=== PATIENT | male | born 1975 | race Caucasian/White ===

== ENCOUNTER 2017-12-18 09:51 | Emergency (ER) | payer MEDICARE, MEDICAID ==
[2017-12-18 11:58] VITALS: BP 147/89
--- NOTE | 2017-12-18 12:56 | RAD ---
INDICATION: Left rib pain COMPARISON: None TECHNIQUE: Multiple views of the ribs were obtained. FINDINGS: Bones: There is no evidence of acute rib fracture. LUNGS: There is mild linear change right lung base most consistent with atelectasis. The remaining lung edgar are clear. There is no pneumothorax. Pleural spaces: There is no evidence of hemothorax. Other: None IMPRESSION: NO ACUTE RIB FRACTURE. MILD LEFT BASILAR ATELECTASIS.
--- NOTE | 2017-12-18 13:01 | UC ---
Cardiac HPI - HPI Summary HPI Summary: Pt c/o sudden onset of left chest/rib pain s/p leaning over a a seat in a car and pulling on a heavy object in car and felt a sudden pop in left upper medial anterior chest. Pt c/o pain with movement, deep breaths and coughing. Denies hemoptysis fever or chills - History of Current Complaint Chief Complaint: UCTrauma Stated Complaint: RIB INJURY Time Seen by Provider: 12/18/17 12:13 Hx Obtained From: Patient Onset/Duration: Sudden Onset Timing: Constant Initial Severity: Mild Current Severity: Mild Chest Pain Location: Left Anterior Aggravating Factor(s): Movement, Deep Breaths Alleviating Factor(s): Position Associated Signs & Symptoms: Positive: Chest Pain - Allergy/Home Medications Allergies/Adverse Reactions: Allergies Allergy/AdvReac Type Severity Reaction Status Date / Time Meloxicam [From [employer]] Allergy Intermediate feet Verified 12/18/17 11:58 swelling Nortriptyline Allergy Swelling Verified 12/18/17 11:58 avoids NSAIDS AdvReac Nausea Uncoded 12/18/17 11:58 Home Medications: Home Medications Escitalopram Oxalate [Lexapro 10 mg] 10 mg 12/18/17 [History] PMH/Surg Hx/FS Hx/Imm Hx Previously Healthy: Yes - Surgical History Surgical History: Yes Surgery Procedure, Year, and Place: rt clavicle repair, right shoulder surgery, right knee surgery, stimulator in right shoulder for pain control - Family History Known Family History: Positive: Cardiac Disease - Social History Occupation: Employed Full-time Lives: With Family Alcohol Use: None Substance Use Type: Marijuana Substance Use Comment - Amount & Last Used: 1100 today. Once daily Smoking Status (MU): Heavy Every Day Tobacco Smoker Type: Cigarettes Amount Used/How Often: 1 PPD Length of Time of Smoking/Using Tobacco: 26 Years Have You Smoked in the Last Year: Yes Household Exposure Type: Cigarettes - Immunization History Most Recent Influenza Vaccination: not current Review of Systems Constitutional: Negative Skin: Negative Eyes: Negative ENT: Negative Respiratory: Negative Cardiovascular: Chest Pain Gastrointestinal: Negative Genitourinary: Negative Motor: Negative Musculoskeletal: Myalgia Neurological: Negative Psychological: Negative Is Patient Immunocompromised?: No All Other Systems Reviewed And Are Negative: Yes Physical Exam Triage Information Reviewed: Yes Appearance: Well-Appearing Vital Signs: Initial Vital Signs Temp 99.3 F 12/18/17 11:53 Pulse 87 12/18/17 11:53 Resp 18 12/18/17 11:53 BP 147/89 12/18/17 11:53 Pulse Ox 99 12/18/17 11:53 Vital Signs Reviewed: Yes Eye Exam: Normal ENT Exam: Normal Neck exam: Normal Respiratory Exam: Normal Cardiovascular Exam: Normal Musculoskeletal Exam: Other Musculoskeletal: Positive: ROM Limited @ - c/o pain with left pectoralis muscle movement, Other: - tenderness with palaption to left upper anterior medial chest wall, Neurological Exam: Normal Psychological Exam: Normal Skin Exam: Normal - Differential Diagnoses - Chest Pain Differential Diagnosis/HQI/PQRI: ACS - Clinical Impression Provider Diagnoses: muscle strain. chest wall pain Discharge - Discharge Plan Condition: Stable Disposition: HOME Prescriptions: predniSONE TAB* [Deltasone TAB*] 20 mg PO DAILY #4 tab Patient Education Materials: Muscle Strain (ED), Chest Wall Pain (ED) Referrals: Jazmín Avalos PA [Primary Care Provider] - If Needed
== END 2017-12-18 13:12 | disposition home or self-care (01) ==
LOC: UCCORT 09:51
DX: R07.89 Other chest pain (principal); T14.8XXA Other injury of unspecified body region, initial encounter; F17.210 Nicotine dependence, cigarettes, uncomplicated; Z88.1 Allergy status to other antibiotic agents; Z88.5 Allergy status to narcotic agent; Z88.8 Allergy status to other drugs, medicaments and biological substances; Z91.09 Other allergy status, other than to drugs and biological substances; X50.9XXA Other and unspecified overexertion or strenuous movements or postures, initial encounter; Y93.89 Activity, other specified; Y92.9 Unspecified place or not applicable
CPT/HCPCS: 99213; G0463